=== PATIENT | male | born 1990 | race African-American/Black ===

== ENCOUNTER 2018-04-28 11:28 | Emergency (ER) | payer SELFPAY ==
[~2018-04-28] VITALS: Ht 170.2 cm; Wt 61.9 kg
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
[2018-04-28 13:35] VITALS: BP 108/77
== END 2018-04-28 15:45 | disposition home or self-care (01) ==
LOC: EDBD 11:28 → ER 11:28
DX: F10.129 Alcohol abuse with intoxication, unspecified (principal); R40.20 Unspecified coma; Y90.9 Presence of alcohol in blood, level not specified
CPT/HCPCS: 99284